=== PATIENT | male | born 1970 | race Caucasian/White ===

== ENCOUNTER → 2016-05-15 | Outpatient (CLI) | payer BC ==
[~2016-05-15] MED LIST: ASHW1CAP PO; FLNIN/ NAE; METH4PAK PO; MISCCAP80 PO; OMEP20CA59 PO; PROM25TA9 PO; VERA120C2 PO
--- NOTE | 2016-05-15 13:38 | DIAGNOSTIC IMAGING REPORT ---
FUSION CT SINUSES W/O CLINICAL HISTORY: J32.9 Chronic [id number] COMPARISON STUDY: No previous studies for comparison. FINDINGS: There is no evidence of hydrocephalus. No orbital masses are visualized. The frontal sinuses are hypoplastic. There is minor polypoid mucosal thickening involving the maxillary sinuses. There are postsurgical changes of prior functional endoscopic surgery. The created nasomaxillary apertures are patent bilaterally. There are postsurgical changes of partial ethmoidectomies. The frontal sinuses are hypoplastic. The sphenoid sinus is clear. IMPRESSION: 1. No evidence of acute sinusitis 2. Hypoplastic frontal sinuses 3. Postsurgical changes. The created nasomaxillary apertures are widely patent bilaterally 4. Mild polypoid mucosal thickening involving the maxillary sinuses.. Electronically signed by: Andrés Reyes M.D. 05/15/2016 1:36 PM Dictated Date/Time: 05/15/2016 1:32 PM
== END | disposition home or self-care (01) ==
LOC: C.CTS 13:14
PROVIDERS: ATTEND Physician Assistant
DX: J32.9 Chronic sinusitis, unspecified (principal); J34.89 Other specified disorders of nose and nasal sinuses

== ENCOUNTER 2016-08-11 08:31 | Emergency (ER) | payer BC ==
[~2016-08-11] VITALS: Ht 172.7 cm; Wt 77.2 kg
[~2016-08-11 08:31] MED LIST changes: -ASHW1CAP PO; -FLNIN/ NAE; -METH4PAK PO; -PROM25TA9 PO; -VERA120C2 PO
[2016-08-11 08:41] VITALS: TEMP 36.7; Ht 172.7 cm; Wt 77.2 kg
[2016-08-11] MEDS ORDERED: ASHW1CAP PO (09:02)
[2016-08-11] MEDS ORDERED: FLNIN/ NAE (09:02)
[2016-08-11] MEDS ORDERED: VERA120C2 PO (09:02)
[2016-08-11] MEDS ORDERED: SODIUM CHLORIDE 0.9% 1000ML 1,000 ML IV STA (09:16)
--- NOTE | 2016-08-11 09:34 | EMERGENCY ROOM VISIT NOTE ---
History First contact with patient: 09:02 Chief Complaint: SINUS CONGESTION/PRESSURE Stated Complaint: SINUS INFECTION Nursing Triage Summary: pt has been on augmentin for 4 days and his sinus infection isnt getting any better pt states just feels tired History of Present Illness The patient is a 46 year old male who presents to the Emergency Room with complaints of sinus congestion and pressure. The patient states he has a history of recurrent sinus infections. He states he had sinus surgery 15 years ago and has had trouble since then. He also reports a history of cluster headaches. The patient states that he has had congestions for at least one week. He has been taking Augmentin and using a Kiera pot and Flonase. He reports nausea, dizziness, fatigue, sinus congestion and pressure, sore throat. The patient rates his discomfort a 4/10. He denies any fevers. He denies any neck pain or neck stiffness. He states that he had a CT scan in the spring which looked okay and showed post operative changes. The patient states he has not recently seen here nose and throat. Review of Systems A 10 system review of systems was completed with positives and pertinent negatives listed in the HPI. Past Medical/Surgical History Medical Problems: (1) Sinus infection Family History Diabetes mellitus Hypertension Social History Smoking Status: Never Smoker Drug Use: none Marital Status: Housing Status: lives with family Occupation Status: employed Current/Historical Medications Scheduled Ashwagandha (Withana Somnfera) (Ashwagandha), 1 TAB PO DAILY Fluticasone Propionate (Fluticasone Propionate), 1 SPRAY MEÑO DAILY Methylprednisolone (Medrol Dosepak), 1 PKT PO UD Omeprazole (Prilosec), 20 MG PO QAM Probiotic Product (Probiotic), 2 CAP PO DAILY Verapamil Hcl (Verapamil Hcl Er), 120 MG PO DAILY Scheduled PRN Promethazine Hcl (Phenergan), 25 MG PO Q6H PRN for Nausea Allergies Coded Allergies: No Known Allergies (Verified , 04/29/15) Physical Exam Vital Signs Date Time Temp Pulse Resp B/P (MAP) Pulse Ox O2 Delivery O2 Flow Rate FiO2 08/11/16 12:03 57 16 119/81 97 08/11/16 11:09 86 16 153/109 96 Room Air 08/11/16 10:21 67 16 163/105 95 Room Air 08/11/16 08:41 36.7 74 18 154/90 97 Room Air Physical Exam VITALS: Vitals are noted on the nurse's note and reviewed by myself. Vital signs stable. The patient is afebrile. GENERAL: The 46-year-old male there is right-sided sinus tenderness., in no acute distress, nondiaphoretic, well-developed well-nourished. SKIN: The skin was without rashes, erythema, edema, or bruising. There is no tenting of the skin. Capillary reflex less than 2 seconds. HEAD: Normocephalic atraumatic. EARS: External auditory canals clear, tympanic membranes pearly ngo without erythema or effusion bilaterally. EYES: Pupils equal round and reactive to light and accommodation. Conjunctivae without injection, sclerae without icterus. Extraocular movements intact. NOSE: Patent, turbinates without inflammation or discharge. No sinus tenderness. MOUTH: Mucous membranes moist. Tonsils are not enlarged. Pharynx without erythema or exudate. Uvula midline. Airway patent. Tongue does not deviate. NECK: Supple without nuchal rigidity. No lymphadenopathy. No thyromegaly. Cervical spine is nontender. No JVD. HEART: Regular rate and rhythm without murmurs gallops or rubs. LUNGS: Clear to auscultation bilaterally without wheezes, rales or rhonchi. No dullness to percussion. No retractions or accessory muscle use. MUSCULOSKELETAL: No muscle atrophy, erythema, or edema noted. Full range of motion in all extremities. No tenderness to palpation. Normal gait. Strength 5/5 throughout. NEURO: Patient was alert and oriented to person place and time. No focal neurological deficits. Medical Decision & Procedures ER Provider Diagnostic Interpretation: [~ rep ct add3]] SINUSES MIN 3 VIEWS ROUTINE CLINICAL HISTORY: recurrent sinusitis COMPARISON STUDY: 10/23/2013 FINDINGS: No air-fluid levels are visualized. There is no significant mucoperiosteal thickening. There are no erosive or destructive changes identified. The frontal sinuses are hypoplastic. IMPRESSION: No conventional radiographic evidence of acute sinusitis. Hypoplastic frontal sinuses. Laboratory Results 08/11/16 09:25 Red Blood Count 5.21, Mean Corpuscular Volume 88.7, Mean Corpuscular Hemoglobin 31.5, Mean Corpuscular Hemoglobin Concent 35.5, Mean Platelet Volume 9.6, Neutrophils (%) (Auto) 68.2, Lymphocytes (%) (Auto) 20.4, Monocytes (%) (Auto) 7.3, Eosinophils (%) (Auto) 3.5, Basophils (%) (Auto) 0.3, Neutrophils # (Auto) 5.03, Lymphocytes # (Auto) 1.50, Monocytes # (Auto) 0.54, Eosinophils # (Auto) 0.26, Basophils # (Auto) 0.02 08/11/16 09:25 Test 08/11/16 09:25 White Blood Count 7.37 K/uL (4.8-10.8) Red Blood Count 5.21 M/uL (4.7-6.1) Hemoglobin 16.4 g/dL (14.0-18.0) Hematocrit 46.2 % (42-52) Mean Corpuscular Volume 88.7 fL (80-100) Mean Corpuscular Hemoglobin 31.5 pg (25-34) Mean Corpuscular Hemoglobin Concent 35.5 g/dl (32-36) Platelet Count 252 K/uL (130-400) Mean Platelet Volume 9.6 fL (7.4-10.4) Neutrophils (%) (Auto) 68.2 % Lymphocytes (%) (Auto) 20.4 % Monocytes (%) (Auto) 7.3 % Eosinophils (%) (Auto) 3.5 % Basophils (%) (Auto) 0.3 % Neutrophils # (Auto) 5.03 K/uL (1.4-6.5) Lymphocytes # (Auto) 1.50 K/uL (1.2-3.4) Monocytes # (Auto) 0.54 K/uL (0.11-0.59) Eosinophils # (Auto) 0.26 K/uL (0-0.5) Basophils # (Auto) 0.02 K/uL (0-0.2) RDW Standard Deviation 38.6 fL (36.4-46.3) RDW Coefficient of Variation 12.0 % (11.5-14.5) Immature Granulocyte % (Auto) 0.3 % Immature Granulocyte # (Auto) 0.02 K/uL (0.00-0.02) Anion Gap 7.0 mmol/L (3-11) Est Creatinine Clear Calc Drug Dose 80.3 ml/min Estimated GFR () 92.2 Estimated GFR (Non- 79.5 BUN/Creatinine Ratio 15.5 (10-20) Calcium Level 8.9 mg/dl (8.5-10.1) Total Bilirubin 0.5 mg/dl (0.2-1) Aspartate Amino Transf (AST/SGOT) 19 U/L (15-37) Alanine Aminotransferase (ALT/SGPT) 58 U/L (12-78) Alkaline Phosphatase 64 U/L (45-117) Total Protein 7.7 gm/dl (6.4-8.2) Albumin 4.2 gm/dl (3.4-5.0) Globulin 3.5 gm/dl (2.5-4.0) Albumin/Globulin Ratio 1.2 (0.9-2) Monoscreen NEG (NEG) Medications Administered Medications (Trade) Dose Ordered Sig/Christian Route Start Time Stop Time Status Last Admin Dose Admin Sodium Chloride 1,000 ml @ 999 mls/hr Q1H1M STAT IV 08/11/16 09:16 08/11/16 10:16 DC 08/11/16 10:05 999 MLS/HR Promethazine HCl 25 mg/Sodium Chloride 51 ml @ 204 mls/hr NOW STAT IV 08/11/16 10:46 08/11/16 11:00 DC 08/11/16 11:08 204 MLS/HR Dexamethasone Sodium Phosphate (Decadron Inj) 10 mg NOW ONCE IV 08/11/16 11:00 08/11/16 11:01 DC 08/11/16 11:08 10 MG ED Course The patient was seen and examined. Previous visits were reviewed. The patient does not have a fever or leukocytosis. He does not have any significant electrolyte abnormalities. [place] was negative. X-ray of the sinuses does not reveal any obvious acute sinusitis The patient presents to the emergency department with sinus congestion and sinus pressure. He is afebrile, without leukocytosis, meningismus or nuchal rigidity to suggest meningitis. The patient is already taking Augmentin. He reports a history of recurrent sinusitis. He states that anytime he begins to have yellow discharge when he blows his nose, he calls his doctor to start an antibiotic. He does not usually have fevers or significant facial pressure or pain. It is possible that this does not represent a true bacterial infection. He states he is already seen at least 4 [place] [employer] that do not know what to do for him. The patient also reports a history of cluster headaches but states this does not feel like a cluster headache. He declined pain medication. He does have nausea and was treated with Phenergan with good improvement. He is taking Augmentin and that could contribute to the nausea. The patient does not appear to be toxic. The patient will be given a prescription for prednisone and he should continue the Augmentin. He should contact his family doctor and/or ENT to schedule a follow-up appointment. The patient did express interest in having paperwork filled out for a medical leave from his job for the sinus congestion and pain. I advised him that he would have to see his family doctor for this. I did give him a note for work. The case was discussed with Dr. Fernando who agrees with the assessment and treatment plan Medical Decision The differential diagnosis includes allergic rhinitis, sinusitis, bacterial infection, mononucleosis, dehydration, electrolyte abnormality, meningitis, among others Impression Primary Impression: Sinus congestion Departure Information Dispostion Home / Self-Care Condition GOOD Prescriptions Promethazine Hcl (Phenergan) 25 Mg Tab 25 MG PO Q6H Y for Nausea for 3 Days, #12 TAB Prov: Monse Crespo PA-C 08/11/16 Methylprednisolone (MEDROL DOSEPAK) 4 Mg Richie 1 PKT PO UD, #1 PKT Prov: Monse Crespo PA-C 08/11/16 Referrals Valdez Schmitz DChristopherOChristopher (PCP) Bam Domingo MD Forms HOME CARE DOCUMENTATION FORM, IMPORTANT VISIT INFORMATION, WORK / SCHOOL INSTRUCTIONS Patient Instructions Headaches Sinus, [facility] Additional Instructions Continue the Augmentin Phenergan as needed, as prescribed for nausea Medrol dosepack as prescribed Return with worsening symptoms Otherwise, follow up with your family doctor and ENT. Work Instructions Return To Work: 3 days
[2016-08-11 09:35] LABS: BASO % 0.3 %; BASO ABS # 0.02 K/uL (0-0.2); COMPLETE YES; EOS % 3.5 %; HEMATOCRIT 46.2 % (42-52); IG% 0.3 %; LYMPH % 20.4 %; MEAN CELL VOLUME 88.7 fL (80-100); MEAN CORPUSCULAR HEMOGLOBIN 31.5 pg (25-34); MEAN CORPUSCULAR HGB CONC 35.5 g/dl (32-36); MEAN PLATELET VOLUME 9.6 fL (7.4-10.4); MONO % 7.3 %; NEUT % 68.2 %; PLATELET COUNT 252 K/uL (130-400); RED BLOOD COUNT 5.21 M/uL (4.7-6.1); WHITE BLOOD COUNT 7.37 K/uL (4.8-10.8)
[2016-08-11 09:52] LABS: BUN/CREATININE RATIO 15.5 (10-20); CALCIUM 8.9 mg/dl (8.5-10.1); CREATININE 1.1 mg/dl (0.60-1.40); POTASSIUM 4.1 mmol/L (3.5-5.1)
[2016-08-11 09:55] LABS: ALB/GLOB RATIO 1.2 (0.9-2)
--- NOTE | 2016-08-11 09:58 | DIAGNOSTIC IMAGING REPORT ---
SINUSES MIN 3 VIEWS ROUTINE CLINICAL HISTORY: recurrent sinusitis COMPARISON STUDY: 10/23/2013 FINDINGS: No air-fluid levels are visualized. There is no significant mucoperiosteal thickening. There are no erosive or destructive changes identified. The frontal sinuses are hypoplastic. IMPRESSION: No conventional radiographic evidence of acute sinusitis. Hypoplastic frontal sinuses. Electronically signed by: Andrés Reyes M.D. 08/11/2016 9:57 AM Dictated Date/Time: 08/11/2016 9:56 AM
[2016-08-11] MEDS ORDERED: PROMETHAZINE HCL INJ 25 MG in SODIUM CHLORIDE 0.9% 50ML 50 ML IV STA (10:46)
[2016-08-11] MEDS ORDERED: METH4PAK PO (10:48)
[2016-08-11] MEDS ORDERED: PROM25TA9 PO (10:48)
[2016-08-11] MEDS ORDERED: DEXAMETHASONE SOD INJ 10 MG/ML VIAL IV ONE (11:00)
[2016-08-11 12:03] VITALS: BP 119/81; PULSE 57; O2SAT 97
== END 2016-08-11 12:09 | disposition home or self-care (01) ==
LOC: C.EDB 08:33 → C.EDA 12:09
DX: J34.89 Other specified disorders of nose and nasal sinuses (principal); Z83.3 Family history of diabetes mellitus; Z82.49 Family history of ischemic heart disease and other diseases of the circulatory system; Z79.899 Other long term (current) drug therapy

== ENCOUNTER → 2016-10-05 | Outpatient (CLI) | payer BC ==
[~2016-10-05] MED LIST changes: +ASHW1CAP PO; +FLNIN/ NAE; +VERA120C2 PO
--- NOTE | 2016-10-05 15:28 | DIAGNOSTIC IMAGING REPORT ---
RIGHT SHOULDER 3 VIEWS CLINICAL HISTORY: Right shoulder pain. FINDINGS: 3 views of the right shoulder are obtained. No prior studies are available for comparison at the time of dictation. The skeletal structures are well mineralized. No fracture or dislocation is seen. Mild bony overgrowth is suggested along the inferior aspect of the glenoid. The glenohumeral joint is maintained. Mild productive degenerative change is seen at the acromioclavicular joint. The overlying soft tissues are within normal limits. The visualized right upper lobe lung parenchyma appears clear. IMPRESSION: There is no radiographic evidence of right shoulder fracture or dislocation. Electronically signed by: Cristiano Moreno M.D. 10/05/2016 3:27 PM Dictated Date/Time: 10/05/2016 3:26 PM
== END | disposition home or self-care (01) ==
LOC: C.RDSM 12:02
PROVIDERS: ATTEND Physician Assistant
DX: M25.511 Pain in right shoulder (principal)

== ENCOUNTER → 2017-04-30 | Outpatient (CLI) | payer BC ==
--- NOTE | 2017-04-30 08:57 | DIAGNOSTIC IMAGING REPORT ---
ABDOMEN LIMITED (US) HISTORY: Pain. Nausea. RUQ PAIN. COMPARISON: 05/23/2010 FINDINGS: Pancreas: The pancreas demonstrates a normal echotexture. Liver: Mild fatty infiltration. Echogenic nodular changes described previously most likely secondary to small benign hemangiomas. These are stable. Gallbladder: No gallbladder wall thickening. No gallstones. CBD: 5 mm Right kidney: No hydronephrosis. IMPRESSION: Mild fatty infiltration of liver. Small benign hemangiomas unchanged from the prior study. No acute process. The above report was generated using voice recognition software. It may contain grammatical, syntax or spelling errors. Electronically signed by: Roge Burks M.D. 04/30/2017 8:55 AM Dictated Date/Time: 04/30/2017 8:50 AM
== END | disposition home or self-care (01) ==
LOC: C.ULTR 08:04
PROVIDERS: ATTEND Internal Medicine Gastroenterology
DX: R11.0 Nausea (principal)